=== PATIENT | male | born 1985 | race Caucasian/White ===

== ENCOUNTER 2020-04-06 05:47 | Observation (INO) | payer BC, SELFPAY ==
[2020-04-06] VITALS (21 sets, daily range): BP systolic 97–144; BP diastolic 47–85; PULSE 60–115; RESP 13–20; TEMP 36.4–36.8; O2SAT 95–100; BMI 28.1
--- NOTE | 2020-04-06 06:00 | ED_ITS ---
HPI - Back Pain/Injury General: Chief Complaint: Back Pain/Injury Stated Complaint: lower back pain Time Seen by Provider: 04/06/20 05:54 History of Present Illness: HPI Narrative: 34-year-old male presents emergency room with complaint of low back pain in the sacral area. He denies any pain radiating down his lower extremities. No difficulty with bowel or bladder no previous episodes similar to this. He denies any specific trauma or fall. MD elicited complaint: back pain Pertinent past history: prior back pain (Usually not this low) Onset (ago): day(s) (3) Timing: constant Severity: severe Similar Symptoms Previously: No Quality: sharp and stabbing Location: sacrum Radiation: none Exacerbating factors: movement, sitting upright and walking Relieving factors: immobilization and other (Prone) Associated symptoms: Deny abdominal pain, arthralgias, chills, change in bowel habits, difficulty walking, dysuria, fatigue, fecal incontinence, fever(s), hematuria, myalgias, nausea, numbness, syncope, tingling/numbness/burning, urinary frequency, urinary urgency, vomiting or weakness Treatments prior to arrival: NSAIDS Review of Systems Const: Denies: fever(s), chills or fatigue ENMT: Denies: throat pain, ear or mastoid pain, nasal discharge or nasal congestion Card: Denies: syncope Resp: Denies: dyspnea, productive cough or non-productive cough GI: Denies: abdominal pain, nausea, vomiting, fecal incontinence or change in bowel habits : Denies: dysuria, urinary urgency or hematuria Skin/Breast: Denies: rash or pruritus Neuro: Denies: difficulty walking Physical Exam Const: COMMON NORMALS: no acute distress GENERAL APPEARANCE: cooperative ORIENTATION/CONSCIOUSNESS: Yes awake, Yes oriented to person, Yes oriented to place and Yes oriented to time HENMT: COMMON NORMALS: normocephalic, atraumatic and hearing grossly normal bilaterally HEAD & SCALP: normocephalic and atraumatic Neck/C-Spine: COMMON NORMALS: no JVD Resp: COMMON NORMALS: normal respiratory effort, No retractions, No use of accessory muscles and clear to auscultation bilaterally AUSCULTATION: clear to auscultation bilaterally Cardio: COMMON NORMALS: no JVD, regular rate, regular rhythm and No murmurs present (Cardio) RATE: regular rate RHYTHM: regular rhythm Extremity: COMMON NORMALS: normal to inspection, capillary refill normal, no clubbing, cyanosis or edema, no calf tenderness and no pedal edema Neuro: SENSORIUM/ORIENTATION: Yes oriented to person, Yes oriented to place and Yes oriented to time Skin: COMMON NORMALS: no rashes or lesions noted GENERAL SKIN EXAM: no rashes or lesions noted Course Vital Signs: Vital signs: Vital Signs Temperature 97.9 F 04/06/20 14:30 Pulse Rate 80 04/06/20 13:52 Respiratory Rate 16 04/06/20 14:30 Blood Pressure 112/70 04/06/20 14:30 Pulse Oximetry 99 04/06/20 14:30 MDM - Back Pain/Injury MDM Narrative: Medical decision making narrative: To get this adequately drained I think you will need to go to the OR. Discussed Dr. Gill he agrees is good to be a prolonged wait time to get him to the operating room will admit to the floor until they are able to get him to surgery. Discussed with the patient he is in agreement wished to go forward with plan. Lab Data: Labs: Lab Results 04/06/20 04/06/20 Range/Units 07:33 08:00 WBC 12.3 H (4.0-10.0) 10^3/ uL RBC 5.09 (4.1-5.3) 10^6/u L Hgb 16.2 (11.7-16.6) g/dL Hct 47.4 (42.0-52.0) % MCV 93.1 (80-94) fL MCH 31.8 (28.0-34.0) pg MCHC 34.2 (30.0-36.0) g/dL RDW 11.2 L (12.1-15.1) % Plt Count 192 (130-400) 10^3/c mm MPV 9.8 (7.4-10.4) fL Neut % (Auto) 75.0 % Lymph % (Auto) 14.1 % Stevens % (Auto) 8.7 % Eos % (Auto) 1.5 % Baso % (Auto) 0.2 % Neut # (Auto) 9.24 H (1.8-7.7) 10^3/u L Lymph # (Auto) 1.7 (0.8-4.8) 10^3/u L Stevens # (Auto) 1.1 H (0.2-0.9) 10^3/u L Eos # (Auto) 0.2 (0.0-0.8) 10^3/u L Baso # (Auto) 0.0 (0.0-0.1) 10^3/u L Nucleated RBC % (a uto) 0 % Nucleated RBCs # 0.0 /100WBC Sodium 139 (136-145) mmol/L Potassium 4.2 (3.5-5.1) mmol/L Chloride 103 (98-107) mmol/L Carbon Dioxide 27 (22-29) mmol/L Anion Gap 13.2 (5-19) BUN 9 (6-20) mg/dL Creatinine 0.7 (0.7-1.2) mg/dL GFR Calculation 130.7 H (90-130) mL/min Glucose 104 (65-115) mg/dL Calculated Osmolal ity 287 (285-295) mOsm/k g Calcium 8.9 (8.5-10.5) mg/dL Total Bilirubin 0.7 (0.15-1.2) mg/dL AST 24 (0-40) U/L ALT 45 H (0-41) U/L Alkaline Phosphata se 78 (40-130) IU/L Total Protein 6.8 (6.6-8.7) g/dL Albumin 3.9 (3.5-5.2) g/dL Globulin 2.9 (1.3-4.6) g/dL Discharge Plan Discharge Patient Disposition: Placed in Observation Admit Provider: Gonsalo Gill Clinical Impression: Pilonidal cyst with abscess Condition: Stable Coding Level of Care Code ED Therapeutic Activities Services Worker for Chg Fwd Exam Detailed
[2020-04-06] MEDS: orphenadrine 30 mg/mL Inj 2 mL 60 MG IM (06:30)
[2020-04-06] MEDS: morphine 4 mg/mL SDV 1 mL 6 MG IM (06:30)
[2020-04-06] MEDS: ketorolac 60 mg/2 mL INJ IM (06:30)
--- NOTE | 2020-04-06 07:09 | PC.NURSE ---
Received report assumed care, no changes noted from report. Pt standing in room, states pain meds has helped pain but it is not gone. Observed redness between buttocks , informed Dr Lynn
--- NOTE | 2020-04-06 07:12 | US_ITS ---
WS: [id number] INDICATION: Gluteal cleft abscess TECHNIQUE: Ultrasound area of concern FINDINGS: Ultrasound area of concern in the gluteal cleft. Complex regular fluid collection in the ar ea of concern measuring 3.6 x 1.8 x 2.4 cm suspicious for abscess. Recommend clinical correlation. Co mplex internal contents. No internal vascularity. US/US soft tissue/extremity 08109 IMPRESSION: Complex fluid collection in the area of concern suspicious for absc ess measuring 3.6 x 1.8 x 2.4 cm.
[2020-04-06] MEDS: ondansetron 2 mg/ML SDV 2 mL 4 MG IVP (07:43)
[2020-04-06] MEDS: morphine 4 mg/mL SDV 1 mL 6 MG IVP (07:44)
[2020-04-06] MEDS: piperacillin-tazobactam 3.375 GM in sodium chloride 0.9% (plus) 50 ML IV (07:44)
[2020-04-06] MEDS: sodium chloride 0.9% 1,000 ML 999 ML IV (07:45)
[2020-04-06 08:02] LABS: Alanine Aminotransferase 45 U/L (0-41); Albumin Level 3.9 g/dL (3.5-5.2); Alkaline Phosphatase 78 IU/L (40-130); Blood Urea Nitrogen 9 mg/dL (6-20); Calcium 8.9 mg/dL (8.5-10.5); Carbon Dioxide 27 mmol/L (22-29); Chloride 103 mmol/L (98-107); Globulin 2.9 g/dL (1.3-4.6); Glomerular Filtration Rate 130.7 mL/min (90-130); Glucose 104 mg/dL (65-115); Osmolality Calculated 287 mOsm/kg (285-295); Sodium 139 mmol/L (136-145); Total Bilirubin 0.7 mg/dL (0.15-1.2); Total Protein 6.8 g/dL (6.6-8.7)
[2020-04-06 08:24] LABS: Anion Gap 13.2 (5-19); Aspartate Amino Transferase 24 U/L (0-40); Potassium 4.2 mmol/L (3.5-5.1)
[2020-04-06 08:56] LABS: Basophils % 0.2 %; Eosinophils # 0.2 10^3/uL (0.0-0.8); Eosinophils % 1.5 %; Hematocrit 47.4 % (42.0-52.0); Hemoglobin 16.2 g/dL (11.7-16.6); Lymphocytes # 1.7 10^3/uL (0.8-4.8); Lymphocytes % 14.1 %; Mean Corpuscular HGB Conc 34.2 g/dL (30.0-36.0); Mean Corpuscular Hemoglobin 31.8 pg (28.0-34.0); Mean Corpuscular Volume 93.1 fL (80-94); Mean Platelet Volume 9.8 fL (7.4-10.4); Monocytes # 1.1 10^3/uL (0.2-0.9); Monocytes % 8.7 %; Neutrophils # 9.24 10^3/uL (1.8-7.7); Nucleated Red Blood Cells % 0 %; Platelet Count 192 10^3/cmm (130-400); Red Blood Count 5.09 10^6/uL (4.1-5.3); Red Cell Distribution Width 11.2 % (12.1-15.1); White Blood Count 12.3 10^3/uL (4.0-10.0)
[2020-04-06] MEDS: morphine 4 mg/mL SDV 1 mL IVP (11:26)
--- NOTE | 2020-04-06 16:29 | P.HP_ITS ---
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 It has continued to worsen and he also had some night sweats. The pain did not radiate, no aggravating or relieving factors. Patient denies any trau ma, drainage. He states that he had a similar episode a few months ago but it resolved spontaneously. Review of Systems General: Reports: 10 or more systems reviewed and unremarkable except in HPI and below Medications/Allergies Home Medications Medication Instructions Recorded Confirmed Last Taken Type No Known Home Medications 04/06/20 04/06/20 Unknown History Allergies Allergy/AdvReac Type Severity Reaction Status Date / Time bacitracin Allergy ALGY-Hives Verified 04/06/20 05:55 [From Neosporin ([id number])] neomycin Allergy ALGY-Hives Verified 04/06/20 05:55 [From Neosporin ([id number])] polymyxin B Allergy ALGY-Hives Verified 04/06/20 05:55 [From Neosporin ([id number])] PFSH Acute PFSH: Surgical History Status post laparoscopic cholecystectomy Vitals/I&O/Wt Last Vital Signs Temp 97.9 F 04/06/20 14:30 Pulse 80 04/06/20 13:52 Resp 16 04/06/20 14:30 BP 112/70 04/06/20 14:30 Pulse Ox 99 04/06/20 14:30 Weight last 48 hrs Weight 180 lb Physical Exam Narrative: EXAM NARRATIVE: HEENT: Normocephalic Eye: Sclera /conjunctiva normal Respiratory and chest: Bilateral clear breath sounds on auscultation Cardiovascular: Normal S1 and S2 heart sounds Abdomen: Soft to palpation Neurological: Oriented to place person and time Skin: Intact, 4 x 3 cm pilonidal abscess Data : 04/06/20 08:00 04/06/20 07:33 Micro: Microbiology 04/06/20 08:30 Blood Culture - Preliminary Blood SPECIMEN COLLECTED 04/06/20 08:36 Blood Culture - Preliminary Blood SPECIMEN COLLECTED A&P Assessment and plan (1) Pilonidal cyst with abscess: 34-year-old male with first episode of pilonidal abscess, WBC is 12.3 Plan for incision and drainage of pilonidal abscess under MAC Procedure, risks, benefits and alternatives have been discussed with the patient who wishes to proceed with surgery. Status: Acute Attestations Medical Necessity Statement*: Pilonidal abscess requiring I&D Coding Level of Care Code Acute Oral Surgery Assistant for Richard Hernandez Diagnoses Pilonidal cyst with abscess L05.01
[2020-04-06] MEDS: fentaNYL 50 mcg/mL INJ 2mL IVP ×3 (18:08→21:49)
--- NOTE | 2020-04-06 20:50 | ANES.PREANE2 ---
Pre-Anesthetic Assessment Pre-Anesthetic Assessment: Height/Weight: Height 1.7 m Weight 81.647 kg Temp Pulse Resp BP Pulse Ox 97.9 F 80 18 112/70 99 04/06/20 14:30 04/06/20 13:52 04/06/20 18:08 04/06/20 14:30 04/06/20 14:30 Preop Diagnosis: Perianal abscess Proposed Procedure: Operation Date: 04/06/20 14:50 Proposed Procedures p Pilonidal Cystectomy(Not Applicable) - Gonsalo Gill MD Was Beta Gayathri taken within 24 hours: N/A Last intake: Intake Last Liquid Date 04/06/20 Last Liquid Time 03:00 Last Solid Date 04/05/20 Last Solid Time 18:00 Social: Social History: No alcohol and No tobacco Exam: Pre-Anes Outpt Exam: alert, oriented x 3, clear to auscultation bilaterally and regular rate & rhythm Airway: Submandibular: WNL Cervical ROM: WNL MP: 2 Dentition: Full Anesthetic Plan: ASA status: 1 Anesthesia: General Risk of > 500 ml blood loss (7ml/kg in children): No Meds/Allergies Current Medications: Current Medications Generic Name Dose Route Start Last Admin Trade Name Freq PRN Reason Stop Dose Admin Fentanyl 50 mcg 04/06/20 14:57 04/06/20 18:08 Fentanyl 50 Mcg/ Ml Inj 2ml IVP 50 mcg Q10M PRN Administration Preop Pain PFSH Anesthesia PFSH: Surgical History (Updated 04/06/20 @ 16:37 by Gonsalo Gill MD) Status post incision and drainage (04/06/20) Pilonidal abscess Status post laparoscopic cholecystectomy Data Anesthesia CBC & Chem 7: 04/06/20 08:00 04/06/20 07:33 Other Labs: Laboratory Results - last 48 hr 04/06/20 04/06/20 07:33 08:00 WBC 12.3 H RBC 5.09 Hgb 16.2 Hct 47.4 MCV 93.1 MCH 31.8 MCHC 34.2 RDW 11.2 L Plt Count 192 MPV 9.8 Neut % (Auto) 75.0 Lymph % (Auto) 14.1 Cameron % (Auto) 8.7 Eos % (Auto) 1.5 Baso % (Auto) 0.2 Neut # (Auto) 9.24 H Lymph # (Auto) 1.7 Cameron # (Auto) 1.1 H Eos # (Auto) 0.2 Baso # (Auto) 0.0 Nucleated RBC % (auto) 0 Nucleated RBCs # 0.0 Sodium 139 Potassium 4.2 Chloride 103 Carbon Dioxide 27 Anion Gap 13.2 BUN 9 Creatinine 0.7 GFR Calculation 130.7 H Glucose 104 Calculated Osmolality 287 Calcium 8.9 Total Bilirubin 0.7 AST 24 ALT 45 H Alkaline Phosphatase 78 Total Protein 6.8 Albumin 3.9 Globulin 2.9 Micro: Microbiology 04/06/20 08:30 Blood Culture - Preliminary Blood SPECIMEN COLLECTED 04/06/20 08:36 Blood Culture - Preliminary Blood SPECIMEN COLLECTED Cardiac Studies: No Data to Display
--- NOTE | 2020-04-06 21:20 | P.OP_ITS ---
Operative Report Date of procedure: April 06, 2020 Pre-op Diagnosis: Pilonidal abscess Post-op Diagnosis: 4 x 4 cm pilonidal abscess Procedure Done: Incision and drainage of pilonidal abscess Pathology: none sent Surgeon: Gonsalo Gill Anesthesia: General Condition: stable Disposition: PACU Procedure: The patient was taken to the operating room and intubated under general anesthesia. Patient had a received IV Zosyn. He was placed in the rig ht lateral position and the area around the abscess was prepped and draped in a sterile manner. 10 cc of 0.5% Marcaine was infiltrated around the abscess. Using a 15 blade a 3 cm longitudinal incision was made to the right of the gluteal cleft with drainage of edward pus. Loculations were taken down bluntly and wound was irrigated with saline and packed with quarter inch ribbon gauze and covered with sterile dressings. The patient was extubated and transferred recovery room in stable condition.
--- NOTE | 2020-04-06 21:22 | PM.DCS ---
Discharge Providers Date of Admission: 04/06/20 11:45 Date of Discharge: April 06, 2020 Attending Provider at Admission: Gonsalo Gill MD Attending Provider at Discharge: Gonsalo Gill MD Diagnoses at Discharge Discharge Diagnosis (1) Pilonidal cyst with abscess: Status: Acute Reason for Visit Reason for Visit: lower back pain Hospital Course Hospital Course This is a 34-year-old male who presented to the ER with complaints of sacral pain and was noted to have a pilonidal abscess. Patient was admitted to the hospital and started on IV antibiotics and underwent incision and drainage of pilonidal abscess. At time of discharge his vital signs were stable and his pain was controlled with oral pain medications. Discharge Data Data Completed and Pending: Completed Studies During Hospitalization Category Date Time Status US soft tissue/ex tremity 53640 Urge nt Ultrasound 04/06/20 07:12 Completed Pending at discharge Category Date Time Status Blood Culture Sta t Lab 04/06/20 08:36 Results Labs from last 24 hours 04/06/20 04/06/20 08:00 07:33 WBC 12.3 H RBC 5.09 Hgb 16.2 Hct 47.4 MCV 93.1 MCH 31.8 MCHC 34.2 RDW 11.2 L Plt Count 192 MPV 9.8 Neut % (Auto) 75.0 Lymph % (Auto) 14.1 Lassen % (Auto) 8.7 Eos % (Auto) 1.5 Baso % (Auto) 0.2 Neut # (Auto) 9.24 H Lymph # (Auto) 1.7 Lassen # (Auto) 1.1 H Eos # (Auto) 0.2 Baso # (Auto) 0.0 Nucleated RBC % (a uto) 0 Nucleated RBCs # 0.0 Sodium 139 Potassium 4.2 Chloride 103 Carbon Dioxide 27 Anion Gap 13.2 BUN 9 Creatinine 0.7 GFR Calculation 130.7 H Glucose 104 Calculated Osmolal ity 287 Calcium 8.9 Total Bilirubin 0.7 AST 24 ALT 45 H Alkaline Phosphata se 78 Total Protein 6.8 Albumin 3.9 Globulin 2.9 Vitals: Last Vital Signs Temp 97.9 F 04/06/20 14:30 Pulse 80 04/06/20 13:52 Resp 18 04/06/20 18:08 BP 112/70 04/06/20 14:30 Pulse Ox 99 04/06/20 14:30 Discharge Plan Discharge Patient Disposition: Home Condition: Stable Prescriptions: New Zofran 4 mg tablet 4 mg PO Q6H PRN (Reason: nausea and vomiting) Qty: 20 RF: 0 Colace 100 mg capsule 100 mg PO BID Qty: 30 RF: 0 Sparkman 5-325 mg tablet 1 tab PO Q6H 7 Days Qty: 20 RF: 0 Bactrim DS 800-160 mg tablet 1 tab PO BID 7 Days Qty: 14 RF: 0 Discharge Orders: Discharge Order (Routine); Ordered 04/06/20 Ordered By: Gonsalo Gill Referrals: Gonsalo Gill MD [Physician] - 04/16/20 10:30 am (Next Sunday) Discharge Diet: Usual diet Discharge Activity: Resume usual activity Patient Instructions: Sulfamethoxazole/Trimethoprim (By mouth), Hydrocodone/Acetaminophen (By mouth), Laxative, Stool Softeners (By mouth), Ondansetron (By mouth), Pilonidal Cyst (DC), Incision and Drainage (DC) Activity Restrictions/Additional Instructions: 1. Okay to shower 2. Irrigate the wound with saline after shower and pack with ribbon gauze once daily And cover wound with gauze 3. Advised to avoid driving while taking opioid pain medications Discharge Attestations Time Spent in Discharge Care*: less than 30 min Quality Metrics Clinical Quality Measures During this hospital stay, did patient experience: None Coding Level of Care Code Acute Halftone Operator for Sharadg Fwd Diagnoses Pilonidal cyst with abscess L05.01
--- NOTE | 2020-04-06 21:36 | ANE.PACU2 ---
Inpatient post-anesthesia follow up: Airway intact: Yes Vital signs: Temperature 97.9 F Pulse Rate [Monito r] 86 Pulse Rate 80 Respiratory Rate 18 Blood Pressure [Ri ght Arm] 143/81 Blood Pressure 112/70 Pulse Oximetry 99 Oxygen Delivery Me thod Room Air Oxygen Flow Rate Fraction of Inspir ed Oxygen Hydration adequate: Yes Nausea and vomiting: No Pain level: 1 Additional Comments: Sedated
--- NOTE | 2020-04-06 22:16 | PC.NURSE ---
pt arrived from PACU with JOSE Pimentel and present at bedside. Pt and aware of current discharge orders requesting if they were okay to go home for the night. Pt and educated that at current moment, the only issue is no pain medication has been ordered to take home and all pharmacies are currently closed. Pt up in room and ambulating in daniel with .
[2020-04-06] MEDS: HYDROcodone-acetaminophen 5-325 mg Tablet 1 TAB PO ×2 (23:19→23:20)
--- NOTE | 2020-04-06 23:44 | PC.NURSE ---
pt given one 5-325mg tablet Hydrocodone PO now for pain rating 5/10, and pt was also sent with one 5-325mg tablet hydrocodone PO to take in six hours as needed for pain until pt is able to brick picker medications from pharmacy when pharmacy opens in the morning. Pt given instructions and education about cleaning and dressing wound, with present at bedside. Pt escorted by nursing staff with all belongings and via wheelchair at [id number].
[2020-04-07 00:13] VITALS: BP 134/85; PULSE 115; RESP 14; TEMP 36.8; O2SAT 97
== END 2020-04-07 00:14 | disposition home or self-care (01) ==
LOC: ER 10:42 → MEDSURG 12:19
PROVIDERS: Admitting Provider Surgery; Emergency Provider Family Medicine; Visit Provider Surgery
PROC: (CPT 10080; principal; 2020-04-06 14:50)
DX: L05.01 Pilonidal cyst with abscess (principal)
CPT/HCPCS: 10080; 12345; 36415; 76882; 80053; 85025; 87040; 96365; 96372; 96375; 99283; 99285; G0378; J1885; J2250; J2270; J2360; J2405; J2543; J2704; J3010; J3490; J7030